=== PATIENT | female | born 1945 | race Caucasian/White ===

== ENCOUNTER → 2017-10-05 17:03 | Outpatient (CLI) | payer MEDICARE, OTHER, SELFPAY ==
--- NOTE | 2017-10-05 17:11 | RAD_ITS ---
STUDY: X-RAY CHEST REASON FOR EXAM: Female, 71 years old. exertional dyspnea TECHNIQUE: Frontal and lateral views of the chest. COMPARISON: 10.11.07 FINDINGS: Chronic appearing increased interstitial lung markings. There is an elevated right hemidiaphragm. There is no demonstrated pleural abnormality. Normal heart size. Normal mediastinum and jessie. Normal visualized pulmonary arteries. There is atherosclerotic calcification of the aortic arch with tortuosity. There are diffuse degenerative changes of the visualized thoracic spine. There is degenerative osteoarthritis of the bilateral shoulders. There is no demonstrated abnormality of the visualized soft tissue structures of the upper abdomen. RAD/Chest PA and Lateral IMPRESSION: There are no acute findings. Electronically Signed: Ilir Herrera MD at 17:35 EDT , Service support ,
== END ==
PROVIDERS: Family Provider Family Medicine; PCP Family Medicine; Visit Provider Family Medicine
DX: R06.09 Other forms of dyspnea (principal)
CPT/HCPCS: 71046

== ENCOUNTER → 2017-10-06 10:42 | Outpatient (CLI) | payer MEDICARE, OTHER, SELFPAY ==
[2017-10-06 12:13] LABS: Absolute Lymphocyte Count 2.25 X10^3/ul (0.83-4.51); Absolute Neutrophil Count 3.6 X10^3/uL (2.0-7.7); Basophil# 0.03 X10^3/uL; Basophil% 0.4 % (0-1); Eosinophil# 0.48 X10^3/uL; Hematocrit 43.5 % (37-47); Hemoglobin 13.9 g/dl (12.0-15.0); Lymphocyte # 2.25 X10^3/ul (4.0); Lymphocyte % 32.8 % (19-41); Mean Corpuscular Hgb 28.1 pg (27.0-32.0); Mean Corpuscular Volume 87.9 fL (81-99); Mean Platelet Vol. 8.8 fl (6.2-12.0); Monocyte# 0.46 X10^3/uL; Monocyte% 6.7 % (0-10); Neutrophil # 3.63 X10^3/uL (2.7-7.7); Neutrophil % 53.1 % (47-70); POSITIVE COUNT NO; POSITIVE DIFFERENTIAL NO; POSITIVE MORPHOLOGY NO; Platelet Count 339 K/mm3 (150-450); RBC Distribution Width CV 13.4 % (11.6-14.6); RBC Distribution Width SD 42.5 fl (35.1-43.9); Red Blood Count 4.95 M/mm3 (4.2-5.4); White Blood Count 6.9 K/mm3 (4.4-11.0)
[2017-10-06 12:52] LABS: ALB/GLOB Ratio 1.1 RATIO (0.9-2.4); AST(SGOT) 23 U/L (15-37); Alanine Aminotransfer ALT/SGPT 28 U/L (13-56); Alkaline Phosphatase 74 U/L (45-117); Anion Gap 10 (5-15); BUN 17 mg/dL (7-18); BUN/Creat Ratio 20.8 RATIO (10-20); Calcium,Total 8.9 mg/dL (8.5-10.1); Chloride 107 mmol/L (98-107); Cholesterol 224 mg/dL (200); Creatinine, Serum 0.82 mg/dL (0.55-1.02); EST Glomerular Filtration Rate 74 mL/min (>60); Est Glom Filt Rate - Afr Amer 89 mL/min (>60); Globulin 3.5 g/dL (2.2-4.2); Glucose 94 mg/dL (74-106); High Density Lipoprotein 56 mg/dL; Potassium 4.4 mmol/L (3.5-5.1); Protein, Total 7.5 g/dL (6.4-8.2); Sodium Level 141 mmol/L (136-145); Thyroid Stim Hormone (TSH) 2.59 uIU/mL (0.358-3.74); Triglycerides 113 mg/dL; Very Low Density Lipoprotein 23 mg/dL (5-40)
[2017-10-06 13:05] LABS: Vitamin D,25 Hydroxy 45.4 ng/mL (29.95-100.01)
== END ==
PROVIDERS: Family Provider Family Medicine; PCP Family Medicine; Visit Provider Family Medicine
DX: E78.00 Pure hypercholesterolemia, unspecified (principal); E55.9 Vitamin D deficiency, unspecified; R53.83 Other fatigue
CPT/HCPCS: 36415; 80053; 80061; 82306; 84443; 85025

== ENCOUNTER → 2018-09-20 | Outpatient (CLI) | payer MEDICARE, OTHER, SELFPAY ==
[2018-09-20 13:49] LABS: Absolute Lymphocyte Count 1.78 X10^3/ul (0.83-4.51); Absolute Neutrophil Count 3.8 X10^3/uL (2.0-7.7); Basophil# 0.03 X10^3/uL; Basophil% 0.5 % (0-1); Eosinophil# 0.33 X10^3/uL; Eosinophils% 5.2 % (0-5); Hematocrit 43.8 % (37-47); Hemoglobin 14.4 g/dl (12.0-15.0); Lymphocyte # 1.78 X10^3/ul (4.0); Lymphocyte % 27.9 % (19-41); Mean Corp Hgb Conc 32.9 g/gl (32-36); Mean Corpuscular Hgb 28.6 pg (27.0-32.0); Mean Corpuscular Volume 86.9 fL (81-99); Mean Platelet Vol. 8.9 fl (6.2-12.0); Monocyte# 0.42 X10^3/uL; Monocyte% 6.6 % (0-10); Neutrophil % 59.6 % (47-70); Platelet Count 324 K/mm3 (150-450); RBC Distribution Width SD 43.8 fl (35.1-43.9); Red Blood Count 5.04 M/mm3 (4.2-5.4); White Blood Count 6.4 K/mm3 (4.4-11.0)
[2018-09-20 13:51] LABS: POSITIVE COUNT NO; POSITIVE DIFFERENTIAL NO; POSITIVE MORPHOLOGY NO
[2018-09-20 13:56] LABS: Erythrocyte Sedimentation Rate 17 mm/hr (0-30)
[2018-09-20 14:27] LABS: Vitamin D,25 Hydroxy 50.1 ng/mL (29.95-100.01)
[2018-09-20 14:32] LABS: ALB/GLOB Ratio 1.5 RATIO (0.9-2.4); AST(SGOT) 23 U/L (15-37); Alanine Aminotransfer ALT/SGPT 25 U/L (13-56); Albumin, Serum 4.4 g/dL (3.2-5.0); Alkaline Phosphatase 78 U/L (45-117); Anion Gap 9 (5-15); BUN 15 mg/dL (7-18); BUN/Creat Ratio 19.7 RATIO (10-20); Calcium,Total 9.2 mg/dL (8.5-10.1); Chloride 103 mmol/L (98-107); Cholesterol 247 mg/dL (200); Creatinine, Serum 0.76 mg/dL (0.55-1.02); EST Glomerular Filtration Rate 80 mL/min (>60); Est Glom Filt Rate - Afr Amer 96 mL/min (>60); Glucose 84 mg/dL (74-106); High Density Lipoprotein 59 mg/dL; Potassium 4.3 mmol/L (3.5-5.1); Protein, Total 7.4 g/dL (6.4-8.2); Sodium Level 139 mmol/L (136-145); Thyroid Stim Hormone (TSH) 1.97 uIU/mL (0.358-3.74); Triglycerides 163 mg/dL; Very Low Density Lipoprotein 33 mg/dL (5-40)
== END | disposition home or self-care (01) ==
LOC: MFPLAB 11:46
PROVIDERS: Family Provider Family Medicine; PCP Family Medicine; Referring Provider Family Medicine; Visit Provider Family Medicine
DX: K58.0 Irritable bowel syndrome with diarrhea (principal); E78.00 Pure hypercholesterolemia, unspecified; R53.83 Other fatigue
CPT/HCPCS: 36415; 80053; 80061; 82306; 84443; 85025; 85652

== ENCOUNTER → 2018-11-04 | Outpatient (CLI) | payer MEDICARE, OTHER, SELFPAY ==
[2018-11-04 14:13] LABS: Erythrocyte Sedimentation Rate 12 mm/hr (0-30)
[2018-11-04 14:15] LABS: Absolute Lymphocyte Count 1.73 X10^3/ul (0.83-4.51); Absolute Neutrophil Count 4.7 X10^3/uL (2.0-7.7); Basophil# 0.03 X10^3/uL; Basophil% 0.4 % (0-1); Eosinophil# 0.38 X10^3/uL; Eosinophils% 5.2 % (0-5); Hematocrit 42.9 % (37-47); Hemoglobin 14.1 g/dl (12.0-15.0); Lymphocyte # 1.73 X10^3/ul (4.0); Lymphocyte % 23.6 % (19-41); Mean Corp Hgb Conc 32.9 g/gl (32-36); Mean Corpuscular Hgb 28.8 pg (27.0-32.0); Mean Corpuscular Volume 87.6 fL (81-99); Mean Platelet Vol. 8.8 fl (6.2-12.0); Monocyte# 0.53 X10^3/uL; Monocyte% 7.2 % (0-10); Neutrophil # 4.65 X10^3/uL (2.7-7.7); Neutrophil % 63.6 % (47-70); Platelet Count 345 K/mm3 (150-450); RBC Distribution Width CV 14.5 % (11.6-14.6); RBC Distribution Width SD 46.3 fl (35.1-43.9); White Blood Count 7.3 K/mm3 (4.4-11.0)
[2018-11-04 14:18] LABS: POSITIVE COUNT NO; POSITIVE DIFFERENTIAL NO; POSITIVE MORPHOLOGY NO
[2018-11-07 16:07] LABS: Endomysial Antibody IgA Negative (Negative)
[2018-11-07 17:12] LABS: Deamidated Gliadin IgA 3 units (0-19); Deamidated Gliadin IgG 1 units (0-19); Immunoglobulin A 131 mg/dL (64-422); t-Transglutaminase IgA <2 U/mL (0-3)
== END | disposition home or self-care (01) ==
LOC: MFPLAB 11:42
PROVIDERS: Family Provider Family Medicine; PCP Family Medicine; Referring Provider Family Medicine; Visit Provider Family Medicine
DX: K52.9 Noninfective gastroenteritis and colitis, unspecified (principal)
CPT/HCPCS: 36415; 82784; 83516; 85025; 85652; 86255; 87177; 87209; 87506

== ENCOUNTER → 2020-01-08 | Outpatient (CLI) | payer MEDICARE, OTHER, SELFPAY ==
[2020-01-08 18:56] LABS: CRP < 2.90 mg/L (0.0-3.0)
[2020-01-10 16:08] LABS: Endomysial Antibody IgA Negative (Negative)
[2020-01-10 16:56] LABS: Immunoglobulin A 113 mg/dL (64-422); t-Transglutaminase IgA <2 U/mL (0-3)
== END | disposition home or self-care (01) ==
LOC: MTLAB 15:32
PROVIDERS: PCP Family Medicine; Referring Provider Internal Medicine Gastroenterology; Visit Provider Internal Medicine Gastroenterology
DX: R19.7 Diarrhea, unspecified (principal)
CPT/HCPCS: 36415; 82784; 83516; 86140; 86255

== ENCOUNTER → 2020-04-08 08:42 | Outpatient (CLI) | payer MEDICARE, OTHER, SELFPAY ==
[2020-04-08 10:25] LABS: ALB/GLOB Ratio 1.3 RATIO (0.9-2.4); AST(SGOT) 22 U/L (15-37); Alanine Aminotransfer ALT/SGPT 24 U/L (13-56); Albumin, Serum 4.2 g/dL (3.2-5.0); Alkaline Phosphatase 55 U/L (45-117); Anion Gap 7 (5-15); BUN 17 mg/dL (7-18); BUN/Creat Ratio 16.8 RATIO (10-20); Calcium,Total 9.7 mg/dL (8.5-10.1); Chloride 105 mmol/L (98-107); Cholesterol 233 mg/dL (200); Creatinine, Serum 1.01 mg/dL (0.55-1.02); EST Glomerular Filtration Rate 57 mL/min (>60); Est Glom Filt Rate - Afr Amer 69 mL/min (>60); Globulin 3.3 g/dL (2.2-4.2); Glucose 85 mg/dL (74-106); High Density Lipoprotein 60 mg/dL; Potassium 4.3 mmol/L (3.5-5.1); Protein, Total 7.5 g/dL (6.4-8.2); Sodium Level 136 mmol/L (136-145); Triglycerides 147 mg/dL; Very Low Density Lipoprotein 29 mg/dL (5-40)
[2020-04-08 10:26] LABS: Vitamin D,25 Hydroxy 97.2 ng/mL
== END ==
PROVIDERS: PCP Family Medicine; Referring Provider Family Medicine; Visit Provider Family Medicine
DX: I10 Essential (primary) hypertension (principal); E55.9 Vitamin D deficiency, unspecified
CPT/HCPCS: 36415; 80053; 80061; 82306

== ENCOUNTER → 2020-07-08 15:46 | Outpatient (CLI) | payer MEDICARE, SELFPAY ==
[2020-07-08 18:01] LABS: Absolute Lymphocyte Count 2.01 X10^3/uL (0.83-4.51); Absolute Neutrophil Count 4.1 X10^3/uL (2.0-7.7); Basophil# 0.03 X10^3/uL; Basophil% 0.4 % (0-1); Eosinophil# 0.21 X10^3/uL; Eosinophils% 3.1 % (0-5); Hemoglobin 12.9 g/dL (12.0-15.0); Lymphocyte # 2.01 X10^3/ul (4.0); Lymphocyte % 29.4 % (19-41); Mean Corp Hgb Conc 32.3 g/dL (32-36); Mean Corpuscular Volume 89.9 fL (81-99); Mean Platelet Vol. 8.5 fl (6.2-12.0); Monocyte# 0.51 X10^3/uL; Monocyte% 7.5 % (0-10); NRBC Flagged by Analyzer 0 % (0-5); Neutrophil # 4.06 X10^3/uL (2.7-7.7); Neutrophil % 59.3 % (47-70); Platelet Count 388 K/mm3 (150-450); RBC Distribution Width CV 13.4 % (11.6-14.6); RBC Distribution Width SD 44.2 fl (35.1-43.9); Red Blood Count 4.45 M/mm3 (4.2-5.4); White Blood Count 6.8 K/mm3 (4.4-11.0)
[2020-07-08 18:58] LABS: Anion Gap 7 (5-15); BUN 23 mg/dL (7-18); Calcium,Total 9.2 mg/dL (8.5-10.1); Chloride 105 mmol/L (98-107); EST Glomerular Filtration Rate 58 mL/min (>60); Est Glom Filt Rate - Afr Amer 70 mL/min (>60); Glucose 88 mg/dL (74-106); Potassium 3.9 mmol/L (3.5-5.1); Sodium Level 137 mmol/L (136-145)
== END ==
PROVIDERS: PCP Family Medicine; Referring Provider Family Medicine; Visit Provider Family Medicine
DX: R42 Dizziness and giddiness (principal)
CPT/HCPCS: 36415; 80048; 84443; 85025

== ENCOUNTER → 2020-10-15 09:34 | Outpatient (CLI) | payer MEDICARE, SELFPAY ==
[2020-10-15 12:41] LABS: Anion Gap 6 (5-15); BUN 19 mg/dL (7-18); BUN/Creat Ratio 17.6 RATIO (10-20); Calcium,Total 9.3 mg/dL (8.5-10.1); Chloride 105 mmol/L (98-107); Cholesterol 267 mg/dL (200); Creatinine, Serum 1.08 mg/dL (0.55-1.02); EST Glomerular Filtration Rate 53 mL/min (>60); Est Glom Filt Rate - Afr Amer 64 mL/min (>60); Glucose 85 mg/dL (74-106); High Density Lipoprotein 63 mg/dL; Potassium 4.3 mmol/L (3.5-5.1); Sodium Level 138 mmol/L (136-145); Triglycerides 130 mg/dL; Very Low Density Lipoprotein 26 mg/dL (5-40)
== END ==
PROVIDERS: PCP Family Medicine; Referring Provider Family Medicine; Visit Provider Family Medicine
DX: I10 Essential (primary) hypertension (principal)
CPT/HCPCS: 36415; 80048; 80061

== ENCOUNTER → 2021-01-10 15:39 | Outpatient (CLI) | payer MEDICARE, SELFPAY ==
[2021-01-10 18:39] LABS: Cholesterol 166 mg/dL (200); High Density Lipoprotein 58 mg/dL; Triglycerides 158 mg/dL; Very Low Density Lipoprotein 32 mg/dL (5-40)
== END ==
PROVIDERS: PCP Family Medicine; Visit Provider Family Medicine
DX: E78.00 Pure hypercholesterolemia, unspecified (principal)
CPT/HCPCS: 36415; 80061

== ENCOUNTER 2021-05-30 15:42 | Outpatient (CLI) | payer MEDICARE, SELFPAY ==
[2021-05-30 17:48] LABS: Anion Gap 7 (5-15); BUN 19 mg/dL (7-18); BUN/Creat Ratio 20.8 RATIO (10-20); Calcium,Total 9.6 mg/dL (8.5-10.1); Chloride 106 mmol/L (98-107); Cholesterol 225 mg/dL (200); Creatinine, Serum 0.92 mg/dL (0.55-1.02); EST Glomerular Filtration Rate 64 mL/min (>60); Est Glom Filt Rate - Afr Amer 77 mL/min (>60); Glucose 109 mg/dL (74-106); High Density Lipoprotein 62 mg/dL; Sodium Level 139 mmol/L (136-145); Triglycerides 246 mg/dL; Very Low Density Lipoprotein 49 mg/dL (5-40)
== END 2021-05-30 23:59 | disposition short-term general hospital (02) ==
PROVIDERS: PCP Family Medicine; Referring Provider Family Medicine; Visit Provider Family Medicine
DX: E78.00 Pure hypercholesterolemia, unspecified (principal)
CPT/HCPCS: 36415; 80048; 80061

== ENCOUNTER → 2022-02-12 | Outpatient (CLI) | payer MEDICARE, SELFPAY ==
[2022-02-12 15:19] LABS: Absolute Lymphocyte Count 1.45 X10^3/uL (0.83-4.51); Absolute Neutrophil Count 5.3 X10^3/uL (2.0-7.7); Basophil# 0.03 X10^3/uL; Basophil% 0.4 % (0-1); Eosinophil# 0.29 X10^3/uL; Eosinophils% 3.9 % (0-5); Hematocrit 41.5 % (37-47); Hemoglobin 12.8 g/dL (12.0-15.0); Lymphocyte # 1.45 X10^3/ul (0.83-4.51); Lymphocyte % 19.3 % (19-41); Mean Corp Hgb Conc 30.8 g/dL (32-36); Mean Corpuscular Hgb 28.1 pg (27.0-32.0); Mean Corpuscular Volume 91.2 fL (81-99); Mean Platelet Vol. 8.7 fl (6.2-12.0); Monocyte# 0.47 X10^3/uL; Monocyte% 6.3 % (0-10); NRBC Flagged by Analyzer 0 % (0-5); Neutrophil # 5.25 X10^3/uL (2.7-7.7); Neutrophil % 69.8 % (47-70); Platelet Count 358 K/mm3 (150-450); RBC Distribution Width CV 14.1 % (11.6-14.6); RBC Distribution Width SD 47.6 fl (35.1-43.9); Red Blood Count 4.55 M/mm3 (4.2-5.4); White Blood Count 7.5 K/mm3 (4.4-11.0)
[2022-02-12 16:13] LABS: Anion Gap 8 (5-15); BUN 20 mg/dL (7-18); BUN/Creat Ratio 21.2 RATIO (10-20); Calcium,Total 9.5 mg/dL (8.5-10.1); Chloride 104 mmol/L (98-107); Creatinine, Serum 0.94 mg/dL (0.55-1.02); EST Glomerular Filtration Rate 61 mL/min (>60); Est Glom Filt Rate - Afr Amer 74 mL/min (>60); Free T3 2.4 pg/mL (2.18-3.98); Glucose 75 mg/dL (74-106); Potassium 3.9 mmol/L (3.5-5.1); Sodium Level 140 mmol/L (136-145); T4 Free Direct 0.83 ng/dL (0.76-1.46); Thyroid Stim Hormone (TSH) 2.81 uIU/mL (0.358-3.74)
== END | disposition home or self-care (01) ==
LOC: MFPLAB 11:44
PROVIDERS: PCP Family Medicine; Referring Provider Family Medicine; Visit Provider Family Medicine
DX: R53.83 Other fatigue (principal)
CPT/HCPCS: 36415; 80048; 84439; 84443; 84481; 85025

== ENCOUNTER → 2022-07-02 | Outpatient (CLI) | payer MEDICARE, SELFPAY ==
--- NOTE | 2022-07-02 10:09 | BI_ITS ---
MAMMOGRAPHY - BILATERAL SCREENING REASON FOR EXAM: Female, 76 years old. Routine annual screening examination. PERTINENT HISTORY: Non-contributory. History of prior stereotactic breast biopsy. TECHNIQUE: Digital bilateral breast dorothea (3D mammographic acquisition) in the CC and MLO projections. 2-D mediolateral oblique (MLO) and craniocaudad (CC) views of both breasts were obtained. CAD: Full Field Digital Mammography with Computer Added Detection was performed. COMPARISON: Comparison is made with prior study dated 08/07/2016 and 10/25/2014. FINDINGS: Breast Composition: The breasts are heterogeneously dense, which may obscure small masses. There are no dominant masses or suspicious calcifications. Stable benign-appearing bilateral axillary lymph nodes. No other significant abnormalities are identified. There has been no significant change since the prior study. BI/SCRN MAMM (CAD)W/DOROTHEA BILAT IMPRESSION: Stable bilateral screening mammogram. Yearly follow-up mammogram recommended. (A) ASSESSMENT CATEGORY: BIRADS Category 2: Benign. A letter regarding these results will be sent to the patient by the facility within 30 days. Approximately 10% of breast cancers are not detected by mammography. A normal mammogram should not delay biopsy of a clinically suspicious abnormality. [id number] Electronically Signed: Luis Moctezuma MD at 11:55 EST ,
== END | disposition home or self-care (01) ==
LOC: OPBI 10:06
PROVIDERS: PCP Family Medicine; Referring Provider Family Medicine; Visit Provider Family Medicine
DX: Z12.31 Encounter for screening mammogram for malignant neoplasm of breast (principal)
CPT/HCPCS: 77063; 77067

== ENCOUNTER 2022-10-13 15:37 | Emergency (ER) | payer MEDICARE, SELFPAY ==
[2022-10-13 15:38] VITALS: BP 157/89; PULSE 70; RESP 18; TEMP 36.6; O2SAT 99; BMI 29.2
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
--- NOTE | 2022-10-13 16:05 | CT_ITS ---
EXAM: CT HEAD WITHOUT INTRAVENOUS CONTRAST CLINICAL INDICATION: Confusion and headache TECHNIQUE: Multiple axial images were obtained of the head without intravenous contrast. This CT exam was performed using one or more of the following dose reduction techniques: automated exposure control, adjustment of the mA and/or kV according to patient size, and/or use of iterative reconstruction technique. COMPARISON: No relevant prior studies available. FINDINGS: BRAIN AND EXTRA-AXIAL SPACES: Areas of diminished white matter density noted within both cerebral hemispheres suggestive of chronic microvascular change. No hemorrhage or mass effect. No acute ischemia. Normal posterior fossa. BONES/JOINTS: No suspicious lytic or blastic abnormality. SINUSES: No acute sinusitis. MASTOID AIR CELLS: Normal. Clear. ORBITS: Visualized globes, extraocular muscles, optic nerves and retrobulbar fat appear unremarkable. CT/Brain/Head without Contrast IMPRESSION: 1. No acute intracranial abnormality. 2. Chronic microvascular changes. Electronically Signed: Clark Mcnamara MD at 16:45 EDT ,
[2022-10-13 16:08] VITALS: BP 148/102; BP 174/87; BP 181/82; PULSE 61; PULSE 62; PULSE 81
[2022-10-13 16:21] LABS: Mucous, Urine 0 SEEN /hpf (<or=2+)
[2022-10-13 16:24] LABS: Color, Urine Yellow (Yellow); Glucose, Dipstick Normal (Normal); Ketone-Dipstick 5 mg/dl (Negative); Leukocyte Esterase-Dipstick 100 /ul (Negative); Nitrite-Dipstick Negative (Negative); Occult Blood-Urine 10 /ul (Negative); Protein-Dipstick 15 mg/dl (Negative); Urine Bilirubin Dipstick Negative (Negative); Urine Clarity Clear (Clear); Urine Urobilinogen Normal (Normal)
[2022-10-13 16:40] LABS: Bacteria RARE /hpf (None Seen); Red Blood Cells-Urine 0-5 SEEN /hpf (0-5); Squamous Epithelial Cells - UA 0-5 SEEN /hpf (5-10); White Blood Cells 0-5 SEEN /hpf (0-5)
--- NOTE | 2022-10-13 16:48 | RAD_ITS ---
INDICATION: chest pain EXAMINATION/TECHNIQUE: X-RAY - portable upright AP chest x-ray COMPARISON: 10/05/2017 FINDINGS: LINES/DEVICES: None. LUNGS: No consolidation, edema or effusion. No pneumothorax. MEDIASTINUM AND CARDIOVASCULAR STRUCTURES: Cardiac silhouette not enlarged. Central airways and mediastinal contour are unremarkable. BONES AND SOFT TISSUES: No acute changes. RAD/Chest 1 View (Portable) IMPRESSION: No radiographic evidence of acute cardiopulmonary disease. Electronically Signed: Sonu Deleon MD at 17:06 EDT ,
[2022-10-13 16:52] VITALS: O2SAT 96
[2022-10-13] MEDS: 0.9% Normal Saline 1,000 ML 999 ML IV (16:53)
[2022-10-13 16:57] LABS: Absolute Lymphocyte Count 1.85 X10^3/uL (0.83-4.51); Absolute Neutrophil Count 3.5 X10^3/uL (2.0-7.7); Basophil# 0.03 X10^3/uL; Basophil% 0.5 % (0-1); Eosinophil# 0.14 X10^3/uL; Eosinophils% 2.3 % (0-5); Hematocrit 40.7 % (37-47); Lymphocyte # 1.85 X10^3/ul (0.83-4.51); Lymphocyte % 30.9 % (19-41); Mean Corp Hgb Conc 31.9 g/dL (32-36); Mean Corpuscular Hgb 28.8 pg (27.0-32.0); Mean Corpuscular Volume 90.2 fL (81-99); Mean Platelet Vol. 8.4 fl (6.2-12.0); Monocyte# 0.45 X10^3/uL; Monocyte% 7.5 % (0-10); NRBC Flagged by Analyzer 0 % (0-5); Neutrophil # 3.51 X10^3/uL (2.7-7.7); Neutrophil % 58.6 % (47-70); Platelet Count 319 K/mm3 (150-450); RBC Distribution Width CV 13.5 % (11.6-14.6); RBC Distribution Width SD 44.9 fl (35.1-43.9); Red Blood Count 4.51 M/mm3 (4.2-5.4)
[2022-10-13 17:00] VITALS: BP 180/78; PULSE 57
[2022-10-13 17:15] LABS: Anion Gap 8 (5-15); BUN 15 mg/dL (7-18); BUN/Creat Ratio 17.4 RATIO (10-20); Calcium,Total 9.6 mg/dL (8.5-10.1); Chloride 106 mmol/L (98-107); Creatinine, Serum 0.86 mg/dL (0.55-1.02); EST Glomerular Filtration Rate 68 mL/min (>60); Est Glom Filt Rate - Afr Amer 82 mL/min (>60); Estimated Creatinine Clearance 42.65 ml/min; Glucose 99 mg/dL (74-106); Potassium 4.2 mmol/L (3.5-5.1); Sodium Level 138 mmol/L (136-145); Troponin-I HS 8 pg/mL (3.0-54.0)
[2022-10-13 18:15] VITALS: BP 205/85; PULSE 59
--- NOTE | 2022-10-13 18:25 | ED.RN ---
DR SIM AWARE OF PATIENT BLOOD PRESSURES
[2022-10-13 18:42] VITALS: BP 207/82
== END 2022-10-13 18:56 | disposition home or self-care (01) ==
PROVIDERS: Emergency Provider Student in an Organized Health Care Education/Training Program; PCP Family Medicine; Visit Provider Student in an Organized Health Care Education/Training Program
DX: S06.0X0A Concussion without loss of consciousness, initial encounter (principal); I95.1 Orthostatic hypotension; W54.1XXA Struck by dog, initial encounter
CPT/HCPCS: 70450; 71045; 80048; 81001; 84484; 85025; 93005; 96360; 99283; J7030

== ENCOUNTER 2023-01-19 03:23 | Emergency (ER) | payer MEDICARE, SELFPAY ==
[2023-01-19 03:25] VITALS: BP 182/87; PULSE 58; RESP 19; TEMP 36.6; O2SAT 99; BMI 27.8
[2023-01-19 03:29] VITALS: BP 182/87; PULSE 57; RESP 19; TEMP 36.6; O2SAT 99
--- NOTE | 2023-01-19 03:47 | CT_ITS ---
INDICATION: headache EXAMINATION: CT BRAIN - CT Head or Brain W/O Contrast Injection TECHNIQUE: Multiple axial images were obtained of the head without intravenous contrast. A radiation dose optimization technique was used for this scan. IV Contrast dosage and agent: None. RADIATION DOSAGE (If Supplied By Facility): CTDIvol = ( 44.99 ) mGy, DLP = ( 829.85 ) mGycm COMPARISON: Prior study dated: 10/13/2022 FINDINGS: BRAIN PARENCHYMA: No intra- or extra-axial hemorrhage. No evidence of acute infarct. No intracranial mass or mass effect. There is preservation of the jones/white matter interface. Posterior fossa structures are unremarkable. Patchy periventricular and deep white matter hypoattenuation is consistent with mild small vessel ischemic change. CSF SPACES: Proportional prominence of the ventricles and sulcal spaces is consistent with mild cerebral volume loss. No hydrocephalus. Basal cisterns are patent. CALVARIUM, SKULL BASE, PARANASAL SINUSES AND MASTOID AIR CELLS: Opacified left mastoid air cells. Small amount of fluid layering in the sphenoid sinus. The right mastoid air cells and visualized paranasal sinuses are otherwise well aerated. The calvarium is intact. No discrete lytic or blastic abnormalities. ORBITS: Both globes, extraocular muscles, optic nerves and retrobulbar fat appear unremarkable. CT/Brain/Head without Contrast IMPRESSION: No acute intracranial finding. Left mastoid air cell effusion. Electronically Signed: Ha Pedraza MD at 4:41 EDT ,
--- NOTE | 2023-01-19 03:47 | EKG12_ITS ---
Test Reason : DYSRHYTHMIA Blood Pressure : / mmHG Vent. Rate : 057 BPM Atrial Rate : 057 BPM P-R Int : 152 ms QRS Dur : 122 ms QT Int : 468 ms P-R-T Axes : 000 -29 017 degrees QTc Int : 455 ms Sinus bradycardia Right bundle branch block Abnormal ECG Confirmed by KOBE ROBERSON, VIN ([id number]), editor at large KEVYN PUENTES ([id number]) on 01/22/2023 11:13:37 AM Referred By: Confirmed By:VIN BULLOCK MD
[2023-01-19 04:00] LABS: Absolute Lymphocyte Count 1.33 X10^3/uL (0.83-4.51); Absolute Neutrophil Count 4.2 X10^3/uL (2.0-7.7); Basophil# 0.02 X10^3/uL; Basophil% 0.3 % (0-1); Eosinophil# 0.06 X10^3/uL; Hemoglobin 12.3 g/dL (12.0-15.0); Lymphocyte # 1.33 X10^3/ul (0.83-4.51); Lymphocyte % 21.8 % (19-41); Mean Corp Hgb Conc 33.2 g/dL (32-36); Mean Corpuscular Hgb 28.7 pg (27.0-32.0); Mean Corpuscular Volume 86.4 fL (81-99); Mean Platelet Vol. 8.4 fl (6.2-12.0); Monocyte# 0.49 X10^3/uL; NRBC Flagged by Analyzer 0 % (0-5); Neutrophil # 4.19 X10^3/uL (2.7-7.7); Neutrophil % 68.6 % (47-70); Platelet Count 321 K/mm3 (150-450); RBC Distribution Width CV 12.9 % (11.6-14.6); RBC Distribution Width SD 40.6 fl (35.1-43.9); Red Blood Count 4.28 M/mm3 (4.2-5.4); White Blood Count 6.1 K/mm3 (4.4-11.0)
[2023-01-19 04:18] LABS: Anion Gap 11 (5-15); BUN 14 mg/dL (7-18); BUN/Creat Ratio 20.7 RATIO (10-20); Calcium,Total 9.1 mg/dL (8.5-10.1); Chloride 103 mmol/L (98-107); Creatinine, Serum 0.68 mg/dL (0.55-1.02); EST Glomerular Filtration Rate 90 mL/min (>60); Est Glom Filt Rate - Afr Amer 109 mL/min (>60); Estimated Creatinine Clearance 36.68 ml/min; Glucose 108 mg/dL (74-106); Potassium 3.3 mmol/L (3.5-5.1); Sodium Level 134 mmol/L (136-145); Troponin-I HS 10 pg/mL (3.0-54.0)
[2023-01-19] MEDS: DiphenhydrAMINE 50 MG/ML Syringe 25 MG IV (04:18)
[2023-01-19] MEDS: Metoclopramide 10 MG/2 ML Vial IV (04:18)
[2023-01-19] MEDS: Ketorolac 15 MG/ML Vial IV (04:18)
--- NOTE | 2023-01-19 04:55 | EDS_ITS ---
HPI History of Present Illness Chief Complaint: Headache Informant: patient Narrative Narrative: Patient is a 77-year-old female with past medical history of hypertension. She states she takes her medications in the morning and has been doing so as directed. She reports that her blood pressure typically runs 130 systolically but that she has been using some sinus medication over the last few days as she has had pain and pressure in her left ear and has noticed headache along with hypertension. She states she is having difficulty sleeping because of the pain and therefore comes in for evaluation. PFSH PFSH Home Medications Omeprazole [Prilosec] 40 mg PO DAILY 07/05/14 [History Last Taken 07/11/14 22:00] enalapril maleate 10 mg tablet (Vasotec) 10 mg PO DAILY 07/05/14 [History Last Taken 07/11/14 22:00] meloxicam 15 mg tablet (Mobic) 15 mg PO DAILY 07/05/14 [History Last Taken Unknown] sulfamethoxazole 400 mg-trimethoprim 80 mg tablet 1 ea PO DAILY 07/05/14 [History Last Taken 07/11/14 22:00] amoxicillin 875 mg-potassium clavulanate 125 mg tablet 1 tab PO BID 10 days #20 tabs 01/19/23 [Rx Last Taken Unknown] Allergy/AdvReac Type Severity Reaction Status Date / Time No Known Allergies Allergy Verified 10/13/22 15:40 Social History Smoking Status: Never smoker ROS ROS ED Constitutional Constitutional ED: Denies chills or fever(s) Eyes Eyes: Denies change in vision ENT ENT ED: Reports ear pain and rhinorrhea; Denies sore throat Cardiovascular Cardiovascular: Denies chest pain Respiratory/Chest Respiratory/Chest: Denies cough or dyspnea Gastrointestinal Gastrointestinal: Denies abdominal pain, diarrhea, nausea or vomiting Genitourinary Genitourinary ED: Denies dysuria Musculoskeletal Musculoskeletal: Denies myalgias or neck pain Integumentary Denies rash Neurologic Neurologic: Reports headache(s); Denies paresthesias or weakness Hematologic/Lymphatic Hematologic/Lymphatic: Denies easy bleeding or easy bruising EXAM Physical Exam Const Vital Signs: 01/19/23 03:25 01/19/23 03:29 01/19/23 05:32 Temperature 97.9 F 97.9 F Temperature Source Oral Oral Pulse Rate 58 L 57 L 60 Respiratory Rate 19 H 19 H 16 Blood Pressure 182/87 H 182/87 H 180/92 H Blood Pressure Mean 118 118 Pulse Ox 99 99 96 Oxygen Delivery Method Room Air Room Air 01/19/23 05:32 Temperature Temperature Source Pulse Rate 60 Respiratory Rate 16 Blood Pressure 180/92 H Blood Pressure Mean 121 Pulse Ox 96 Oxygen Delivery Method Room Air Positive well nourished and well developed General Appearance ED: well developed HEENT HEENT Narrative: Right TM and canal are normal. The left TM is bulging and there is positive air-fluid level. However no erythema is noted. The left ear canal is normal as well. There is no erythema warmth or pain with palpation over the bilateral mastoid region. Cobblestoning is noted in the posterior pharynx without secondary changes to suggest infection Nasal mucosa is hyperemic and boggy Eyes PERRL and EOMs intact bilaterally Neck supple Neck Narrative: No nuchal rigidity or meningeal signs Resp normal respiratory effort and clear to auscultation bilaterally Cardio regular rate and regular rhythm Rate: other Other Details: Radial and carotid pulses are equal and symmetric GI normal to inspection, nondistended, normoactive bowel sounds, non-tender, non- distended and no masses GI Narrative: No pulsatile mass Auscultation: normoactive bowel sounds Palpation: soft Extremity normal to inspection Extremity Narrative: No asymmetric edema no pitting edema negative Homans' sign bilaterally Neuro oriented x3, CN's II-XII intact bilaterally and no sensory deficits noted Neuro Narrative: Cranial nerves II through XII are grossly intact there are no focal neurologic d eficit. No pronator drift no dysmetria no truncal ataxia. NIH stroke scale score of 0. Sensorium / Orientation: alert Motor Exam: strength 5/5 throughout Psych mental status grossly normal Skin no rashes or lesions noted MDM MDM MDM Narrative Medical decision making narrative: Patient presented to the ER hypertensive but otherwise had a normal neurologic exam. With her report of having some congestion and taking sinus pills she does have a reason for her headache as well as accelerated hypertension. In order to assure there are no signs of endorgan damage such as acute kidney injury or acute coronary syndrome I did elect to perform basic laboratory test. A head CT was also obtained to rule out potential brain bleed or mass as a cause of her symptoms. Blood work revealed no clinically significant findings such as acute kidney injury or elevation to the troponin. Head CT revealed fluid in the left sphenoid sinus as well as the left mastoid air cell. However there are no surrounding inflammatory changes noted on imaging scan. Also her white count is normal and she is afebrile therefore do not feel this is acute mastoiditis. She was given Toradol Benadryl and Reglan and had resolution of her headache. Blood pressure remained elevated but her neuro exam was normal and as she has no signs of endorgan damage I do not feel there is need to provide emergent antihypertensive medications as she will take her home medications in the next 2 hours. Based on the positive air-fluid level on exam and fluid noted on head CT I did elect to start her on antibiotic for potential infection. She will follow-up with ENT to discuss any need for further testing or treatment options regarding the fluid in the sphenoid and mastoid air cells but at this time as neuro exam is normal work-up reveals no signs of endorgan damage and there is no signs of systemic infection she is otherwise safe for discharge. History & Record Review Discussion w/independent historian: Patient Lab Data Attestation: I reviewed the patient's lab results. Labs: Laboratory Results - last 24 hr 01/19/23 03:55 WBC 6.1 RBC 4.28 Hgb 12.3 Hct 37.0 MCV 86.4 MCH 28.7 MCHC 33.2 RDW Std Deviation 40.6 RDW Coeff of Angus 12.9 Plt Count 321 MPV 8.4 Immature Gran % (Auto) 0.300 Neut % (Auto) 68.6 Lymph % (Auto) 21.8 [place] % (Auto) 8.0 Eos % (Auto) 1.0 Baso % (Auto) 0.3 Absolute Neuts (auto) 4.2 Absolute Lymphs (auto) 1.33 Nucleated RBC % 0 Sodium 134 L Potassium 3.3 L Chloride 103 Carbon Dioxide 20.0 L Anion Gap 11 BUN 14 Creatinine 0.68 Estim Creat Clear Calc 36.68 Est GFR (MDRD) Af Amer 109 Est GFR (MDRD) Non-Af 90 BUN/Creatinine Ratio 20.7 H Glucose 108 H Calcium 9.1 Troponin I High Sens 10 Radiography Diagnostic Testing: Clinical Impression(s) from Imaging Studies Brain CT 01/19/23 03:47 IMPRESSION: No acute intracranial finding. Left mastoid air cell effusion. Electronically Signed: Ha Pedraza MD at 4:41 EDT , Discharge Plan Triage Chief Complaint: Headache ED Provider: Terence Rodriges Dx/Rx/DC Orders Clinical Impression: Cephalgia, Hypertension Instructions: ED Headache Unspecified, ED Hypertension, Established Prescriptions: New amoxicillin-pot clavulanate 875-125 mg tablet 1 tab PO BID 10 Days Qty: 20 0RF No Action enalapril maleate [Vasotec] 10 MG tablet 10 mg PO DAILY Patient Comments: BP sulfamethoxazole-trimethoprim 1 EACH tablet 1 ea PO DAILY Patient Comments: GOUT meloxicam [Mobic] 15 MG tablet 15 mg PO DAILY Patient Comments: PAIN Omeprazole [Prilosec] 40 MG capsule 40 mg PO DAILY 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 You do have fluid within your left mastoid air cells as well as the left sphenoid sinus which most likely accounts for your headache. Take the antibiotic as directed to see if this helps improve symptoms and follow-up with ENT to discuss further treatment options or testing if necessary. If you have any further concerns please return for repeat evaluation Disposition Disposition: Home, Self Care Discharge Date/Time: 01/19/23 05:34
[2023-01-19] MEDS: Amox/Clavulanate 875 MG Tablet PO (05:27)
[2023-01-19 05:32] VITALS: BP 180/92; PULSE 60; RESP 16; O2SAT 96
== END 2023-01-19 05:34 | disposition home or self-care (01) ==
PROVIDERS: Emergency Provider Emergency Medicine; PCP Family Medicine; Visit Provider Emergency Medicine
DX: R51.9 Headache, unspecified (principal); I10 Essential (primary) hypertension
CPT/HCPCS: 70450; 80048; 84484; 85025; 87811; 93005; 96374; 96375; 99285; A4216

== ENCOUNTER → 2023-02-26 | Outpatient (CLI) | payer MEDICARE, SELFPAY ==
[2023-02-26 12:43] LABS: Microalbumin,Random Urine 79.7 mg/L (NO RANGE EST.); Microalbumin:Creatinine Ratio 28.2 mg/g CRE (<30 mg/g CRE)
[2023-02-26 12:51] LABS: ALB/GLOB Ratio 1.1 RATIO (0.9-2.4); AST(SGOT) 17 U/L (15-37); Alanine Aminotransfer ALT/SGPT 20 U/L (13-56); Albumin, Serum 3.8 g/dL (3.2-5.0); Alkaline Phosphatase 62 U/L (45-117); Anion Gap 8 (5-15); BUN 12 mg/dL (7-18); Calcium,Total 9.2 mg/dL (8.5-10.1); Chloride 105 mmol/L (98-107); Cholesterol 150 mg/dL (200); EST Glomerular Filtration Rate 74 mL/min (>60); Est Glom Filt Rate - Afr Amer 90 mL/min (>60); Globulin 3.5 g/dL (2.2-4.2); Glucose 107 mg/dL (74-106); High Density Lipoprotein 69 mg/dL; Potassium 3.9 mmol/L (3.5-5.1); Protein, Total 7.3 g/dL (6.4-8.2); Sodium Level 140 mmol/L (136-145); Triglycerides 97 mg/dL; Very Low Density Lipoprotein 19 mg/dL (5-40)
== END | disposition home or self-care (01) ==
LOC: MFPLAB 11:23
PROVIDERS: PCP Family Medicine; Visit Provider Family Medicine
DX: I10 Essential (primary) hypertension (principal); E78.00 Pure hypercholesterolemia, unspecified
CPT/HCPCS: 36415; 80053; 80061; 82043; 82570

== ENCOUNTER → 2023-12-30 | Outpatient (CLI) | payer MEDICARE, SELFPAY ==
[2023-12-30 10:49] LABS: ALB/GLOB Ratio 1.3 RATIO (0.9-2.4); AST(SGOT) 22 U/L (15-37); Alanine Aminotransfer ALT/SGPT 23 U/L (13-56); Alkaline Phosphatase 57 U/L (45-117); Anion Gap 6 (5-15); BUN 14 mg/dL (7-18); Calcium,Total 9.2 mg/dL (8.5-10.1); Chloride 103 mmol/L (98-107); Cholesterol 170 mg/dL (200); Creatinine, Serum 0.82 mg/dL (0.55-1.02); EST Glomerular Filtration Rate 72 mL/min (>60); Est Glom Filt Rate - Afr Amer 87 mL/min (>60); Glucose 93 mg/dL (74-106); High Density Lipoprotein 63 mg/dL; Potassium 4.3 mmol/L (3.5-5.1); Sodium Level 137 mmol/L (136-145); Triglycerides 128 mg/dL; Very Low Density Lipoprotein 26 mg/dL (5-40)
== END | disposition home or self-care (01) ==
LOC: MTLAB 08:57
PROVIDERS: PCP Family Medicine; Referring Provider Family Medicine; Visit Provider Family Medicine
DX: E11.9 Type 2 diabetes mellitus without complications (principal)
CPT/HCPCS: 36415; 80053; 80061

== ENCOUNTER 2024-06-04 13:16 | Emergency (ER) | payer MEDICARE, SELFPAY ==
[2024-06-04 13:16] VITALS: BP 125/86; PULSE 98; RESP 18; TEMP 36.1; O2SAT 96; BMI 29.2
[2024-06-04 13:58] VITALS: BP 125/86; PULSE 90; RESP 18; TEMP 36.1; O2SAT 96
--- NOTE | 2024-06-04 14:19 | EX.ED.VIS.EY ---
HPI History of Present Illness Chief Complaint: Eye Problem Informant: patient and family Narrative Narrative: 78-year-old female presenting to the emergency room with a chief complaint of vision change. Patient states that yesterday she felt she like she was seeing a blue orb/Mel ornament in her left field of vision. When she woke today she feels like the bottom half of her vision is looking through read. She can still see shapes and there is nothing blacked out. She denies any pain in the eye. She has had prior cataract surgery she is a patient of Dr. Sepulveda. No visual field cuts noted by patient. [facility] Home Medications ?Medication ?Instructions ?Recorded ?Last Taken ?Type Omeprazole [Prilosec] 40 mg PO DAILY 07/05/14 07/11/14 22:00 History enalapril maleate 10 mg tablet 10 mg PO DAILY 07/05/14 07/11/14 22:00 History (Vasotec) meloxicam 15 mg tablet (Mobic) 15 mg PO DAILY 07/05/14 Unknown History sulfamethoxazole 400 1 ea PO DAILY 07/05/14 07/11/14 22:00 History mg-trimethoprim 80 mg tablet amoxicillin 875 mg-potassium 1 tab PO BID 10 days #20 tabs 01/19/23 Unknown Rx clavulanate 125 mg tablet Allergy/AdvReac Type Severity Reaction Status Date / Time No Known Allergies Allergy Verified 06/04/24 13:26 Social History Smoking Status: Never smoker ROS ROS ED Constitutional Constitutional ED: Denies chills or weight loss Eyes Eyes: Reports change in vision; Denies blurry vision or diplopia ENT ENT ED: Denies ear pain, rhinorrhea or sore throat Cardiovascular Cardiovascular: Denies chest pain, orthopnea, palpitations or racing heartbeat Respiratory/Chest Respiratory/Chest: Denies cough, dyspnea or orthopnea Gastrointestinal Gastrointestinal: Denies abdominal pain, diarrhea, nausea or vomiting Genitourinary Genitourinary ED: Denies dysuria, hematuria or urinary frequency Musculoskeletal Musculoskeletal: Denies arthralgias or myalgias Integumentary Denies abscess or rash Neurologic Neurologic: Denies headache(s) or weakness Psychiatric Psychiatric: Denies anxiety, depression, suicidal ideation or suicidal thoughts Endocrine Endocrinology: Denies polydipsia, polyphagia or polyuria Allergic/Immunologic Allergic/Immunologic ED: Denies mouth swelling, tongue swelling or urticaria EXAM Physical Exam Const Vital Signs: 06/04/24 13:16 06/04/24 13:58 Temperature 97 F L 97 F L Temperature Source Temporal Pulse Rate 98 90 Respiratory Rate 18 18 Blood Pressure 125/86 H 125/86 H Blood Pressure Mean 99 99 Pulse Ox 96 96 Oxygen Delivery Method Room Air Positive well nourished and well developed General Appearance ED: well developed HEENT Reports normocephalic, head/scalp atraumatic and moist mucous membranes Eyes PERRL and EOMs intact bilaterally Eyes Narrative: There is no hyphema subconjunctival hemorrhage. Anterior chamber appears deep and quiet. The retina appears abnormal in the cephalad direction. It looks very dark without the orange and she has no issues expected. Neck no lymphadenopathy, supple and no JVD Resp normal respiratory effort and clear to auscultation bilaterally Cardio regular rate, regular rhythm and no murmurs GI normal to inspection, nondistended, normoactive bowel sounds and non-tender Palpation: soft Back/Spine no CVA tenderness and normal ROM Extremity normal to inspection General Extremety ED: Negative for edema General Extremity: Negative for edema Neuro oriented x3 and CN's II-XII intact bilaterally Sensorium / Orientation: alert Motor Exam: strength 5/5 throughout Psych mental status grossly normal Mood & Affect: Negative for depressed or tearful Skin no rashes or lesions noted and no wounds MDM MDM MDM Narrative Medical decision making narrative: Differential diagnosis includes but not limited to retinal detachment vitreous hemorrhage floaters glaucoma I spoke with the patient's rayon winder who is going to follow-up with the patient here shortly in the office for examination. Patient is comfortable with this plan. History & Record Review Discussion w/independent historian: Patient Discharge Plan Triage Chief Complaint: Eye Problem ED Provider: Ollie Shepherd Dx/Rx/DC Orders Clinical Impression: Retinal detachment Instructions: Retinal Tears Detachments Prescriptions: No Action enalapril maleate [Vasotec] 10 MG tablet 10 mg PO DAILY Patient Comments: BP sulfamethoxazole-trimethoprim 1 EACH tablet 1 ea PO DAILY Patient Comments: GOUT meloxicam [Mobic] 15 MG tablet 15 mg PO DAILY Patient Comments: PAIN Omeprazole [Prilosec] 40 MG capsule 40 mg PO DAILY Patient Comments: ACID ORDER ENTRY REPRESENTATIVE amoxicillin-pot clavulanate 875-125 mg tablet 1 tab PO BID 10 Days Qty: 20 0RF Primary Care Provider: Luis Maloney Referrals: Luis Maloney MD [Primary Care Provider] - Juli Noguera MD [Med Staff - Active Staff] - As soon as possible Print Language: Frisian Disposition Disposition: Home, Self Care Discharge Date/Time: 06/04/24 14:18
== END 2024-06-04 14:18 | disposition home or self-care (01) ==
PROVIDERS: Emergency Provider Emergency Medicine; PCP Family Medicine; Visit Provider Emergency Medicine
DX: H33.22 Serous retinal detachment, left eye (principal)
CPT/HCPCS: 99283; A4216

== ENCOUNTER → 2024-10-27 | Outpatient (CLI) | payer MEDICARE, SELFPAY ==
[2024-10-27 13:45] LABS: Anion Gap 13 (5-15); BUN 15 mg/dL (4-19); BUN/Creat Ratio 17.7 RATIO (10-20); Calcium,Total 9.6 mg/dL (7.6-11.0); Carbon Dioxide 22.9 mmol/L (21.0-32.0); Chloride 100 mmol/L (98-108); Cholesterol 192 mg/dL (<=200); Creatinine, Serum 0.85 mg/dL (0.70-1.20); EST Glomerular Filtration Rate 70 (>60); Glucose 86 mg/dL (70-99); High Density Lipoprotein 65 mg/dL; Low Density Lipoprotein Calc. 108 mg/dL; Potassium 3.7 mmol/L (3.3-5.1); Sodium Level 137 mmol/L (133-145); Triglycerides 95 mg/dL; Very Low Density Lipoprotein 19 mg/dL (5-40); cholesterol:hdl ratio screen 2.94
== END | disposition home or self-care (01) ==
LOC: MTLAB 09:07
PROVIDERS: PCP Family Medicine; Referring Provider Family Medicine; Visit Provider Family Medicine
DX: I10 Essential (primary) hypertension (principal)
CPT/HCPCS: 36415; 80048; 80061

== ENCOUNTER 2025-02-06 08:58 | Outpatient (CLI) | payer MEDICARE, SELFPAY ==
--- NOTE | 2025-02-06 09:01 | BI_ITS ---
EXAM: SCRN MAMM (CAD)W/DOROTHEA BILAT DATE: 02/06/2025 CLINICAL HISTORY: F, Age 79 y/o , SCREENING Sister with breast cancer. Prior right stereotactic breast biopsy. TECHNIQUE: Procedure Code: [id number] Modality: MG Procedure: SCRN MAMM (CAD)W/DOROTHEA BILAT COMPARISON: Prior exam(s) dated July 02, 2022.. FINDINGS: TISSUE DENSITY: There are scattered areas of fibroglandular density. Bilateral Breast Mammographic Findings: No significant masses, calcifications or other abnormalities are identified. No suspicious masses, areas of developing architectural distortion, or suspicious calcifications. There has been no significant interval change. BI/SCRN MAMM (CAD)W/DOROTHEA BILAT IMPRESSION: Stable bilateral screening mammogram. OVERALL FINAL ASSESSMENT BI-RADS 1: NEGATIVE. RECOMMENDATION: Routine annual follow-up in 1 Year Additional Recommendation none A letter with findings and recommendations will be mailed to the patient. Reading Location: [place] [id number]
--- NOTE | 2025-02-06 09:01 | BD_ITS ---
PROCEDURE: DEXA BONE DENSITY STUDY 02/06/2025 REASON FOR EXAM: F, age 79 y/o . TECHNIQUE: Procedure Code: BDDBD Modality: DX Procedure: DEXA BONE DENSITY STUDY COMPARISON: None. FINDINGS: BMD and T-SCORES Lumbar spine: 1.406 g/cm2, T-score 3.0 Levels: L2 through L4 Left femoral neck: 0.785 g/cm2, T-score -0.6 Left total hip: 0.925 g/cm2, T-score -0.1 Right femoral neck: 0.796 g/cm2, T-score -0.5 Right total hip: 0.930 g/cm2, T-score -0.1 The World Health Organization has defined the following categories based on bone density: Normal bone density: T-score equal to or greater than -1.0 Osteopenia: T-score between -1.0 and -2.5 Osteoporosis: T-score equal to or less than -2.5 FRAX (or Comparable) Fracture Risk Assessment: 10 Year Probability of Fracture: Major Osteoporotic Fracture: 9.0% Hip Fracture: 1.2% (Note: FRAX is not to be reported in setting of normal range bone density, osteoporosis on DEXA, known history of osteoporosis, prior osteoporotic hip or vertebral fracture, or for any patient undergoing pharmacological treatment for bone loss.) The National Osteoporosis Foundation (NOF) recommends pharmacological treatment for patients with a FRAX 10-year risk of 3% or higher for a hip fracture, or 20% or higher for a major osteoporotic fracture, to prevent osteoporosis and reduce fracture risk. The patient does not meet the pharmacological treatment recommendations for prevention of osteoporosis. BD/Dexa Bone Density Study IMPRESSION: There is abnormally increased density of the lumbar spine. There is normal bon e mineral density of both hips. Recommend follow-up as clinically warranted. Note: Review of the AP image of the lumbar spine, in this patient, demonstrates multilevel facet arthropathy and degenerative disc disease, as well as scoliosis. This artifactually elevates the bone yarn skeins examiner al density measurement. In the future, the non dominant wrist should be used, rather than the lumbar spine, for the determinat ion of bone mineral density, in this patient. Reading Location: [id number]
== END 2025-02-06 23:59 | disposition home or self-care (01) ==
LOC: OPBD 08:58
PROVIDERS: PCP Family Medicine; Referring Provider Family Medicine; Visit Provider Family Medicine
DX: Z12.31 Encounter for screening mammogram for malignant neoplasm of breast (principal); M81.0 Age-related osteoporosis without current pathological fracture
CPT/HCPCS: 77063; 77067; 77080

== ENCOUNTER → 2025-02-21 | Outpatient (CLI) | payer MEDICARE, SELFPAY | END | disposition home or self-care (01) | LOC: MTRAD 14:59 | PROVIDERS: PCP Family Medicine; Referring Provider Family Medicine; Visit Provider Family Medicine | DX: M25.571 Pain in right ankle and joints of right foot (principal) | CPT/HCPCS: 73610 ==